=== PATIENT | male | born 1995 | race African-American/Black ===

== ENCOUNTER 2022-01-14 07:03 | Observation (INO) | payer BC, SELFPAY ==
[2022-01-14] VITALS (40 sets, daily range): BP systolic 132–185; BP diastolic 70–111; PULSE 89–127; RESP 16–34; TEMP 35.9–36.7; O2SAT 80–100; BMI 49.2
--- NOTE | ~2022-01-14 | CT_ITS ---
EXAMINATION: CTA chest PE protocol DATE: 01/14/2022 09:37 INDICATION: Shortness of breath, cough. History of asthma. Hypoxia. TECHNIQUE: Computed tomography angiography (CTA) of the chest was performed with 100 mL Omnipaque-350 intravenous contrast timed to evaluate the pulmonary arteries. Coronal maximum intensity projection 3D-reconstructions were created by the technologist. Automated exposure control and iterative reconst ruction technique were employed. Exam dose: 2057.10 mGy-cm total exam DLP. COMPARISON: 01/10/2022 portable upright AP chest FINDINGS: Examination is suboptimal for evaluation for pulmonary emboli due to suboptimal contrast op acification of the pulmonary arteries even after a second injection, in addition to difficulty evalua ting the peripheral pulmonary vessels due to respiratory motion. No central pulmonary embolus is evident. Normal heart size. No thoracic aortic aneurysm or dissection is detected. Minimal prominence mediastinal lymph nodes, likely reactive, secondary to pulmonary infiltrates. Infiltrates involve particularly superior segment of the right lower lobe, perihilar middle lobe and perihilar right lower lobe, and especially right lower lobe medial basilar segment. Minimal focal infiltrate or atelectasis in the dependent posterior segment of the left upper lobe. No pulmonary vascular congestion or pleural effusion or pneumothorax IMPRESSION: Bilateral pulmonary infiltrates, primarily on the right No central pulmonary embolism is identified Reviewed, dictated and finalized at [facility]. Reviewed, dictated and finalized at [facility]. EPERSON
--- NOTE | ~2022-01-14 | XR_ITS ---
XR chest 1V portable DATE: 01/14/2022 07:29 INDICATION: Cough, shortness of breath. History of asthma. TECHNIQUE: Portable upright AP chest on 01/10/2022 at 0726 hours COMPARISON: None FINDINGS: There is bilateral peribronchial soft tissue thickening. There are patchy bilateral pulmona ry infiltrates, relatively diffuse in the right lung and in the mid and lower lung. No pleural effusion or pulmonary vascular congestion or pneumothorax. Normal heart size. IMPRESSION: Peribronchial soft tissue thickening Bilateral pulmonary infiltrates, right greater than left Reviewed, dictated and finalized at [facility]. SURVEYOR
--- NOTE | 2022-01-14 07:17 | ECG_ITS ---
Measurements Intervals [place] Rate: 120 P: 74 DE: 166 QRS: 42 QRSD: 87 T: 44 QT: 280 QTc: 397 Interpretive Statements SINUS TACHYCARDIA BASELINE ARTIFACT- II, III, AVF, V1, V4-V6 ABNORMAL ECG NO PREVIOUS ECG AVAILABLE FOR COMPARISON Electronically Signed On 01-14-2022 14:29:36 [employer] by Jeronimo Marino D.O.
[2022-01-14] MEDS: IPRATROPIUM BR 0.02% INH SOLN 0.5 MG/2.5 ML VIAL INHALATION ×2 (07:31→20:29)
[2022-01-14] MEDS: ALBUTEROL SULFATE NEB 2.5 MG/3 ML INH 5 MG INHALATION ×2 (07:31→09:41)
--- NOTE | 2022-01-14 07:37 | ED.SOB ---
HPI - SOB/Dyspnea General Chief Complaint: Shortness of Breath/Dyspnea Stated Complaint: sob,athma & weakness Time Seen by Provider: 01/14/22 07:16 History of Present Illness HPI Narrative: This is a 26-year-old male with past medical history of hypertension and asthma, presents to the emergency department complaining of 2 days worth of shortness of breath. He states he feels this is similar to an asthma attack but much worse. He used his albuterol inhaler multiple times last use approximately 3 hours prior to arriving. He denies fevers, chills, chest pain, loss of consciousness, weakness or numbness. He also notes increased thirst and urination. A home test for COVID was negative Related Data Home Medications Medication Instructions Recorded Confirmed albuterol 90 mcg/actuation aerosol See Rx Instructions .Route 01/14/22 01/14/22 inhaler .COMPLEX PRN Wheezing ergocalciferol (vitamin D2) 1,250 1,250 mcg PO WEEKLY 01/14/22 01/14/22 mcg (50,000 unit) capsule lisinopril 5 mg tablet 5 mg PO DAILY 01/14/22 01/14/22 mometasone 220 mcg/actuation(120 1 inh inhalation BID 01/14/22 01/14/22 doses)breath activated powder inhaler (Asmanex Twisthaler) montelukast 10 mg tablet 10 mg PO DAILY 01/14/22 01/14/22 (Singulair) Allergies Allergy/AdvReac Type Severity Reaction Status Date / Time No Known Allergies Allergy Verified 01/14/22 07:15 Review of Systems Review of Systems: CONSTITUTIONAL: Denies fever, chills, or sweats. EYES: Denies visual changes, redness, or discharge. ENT: Denies rhinorrhea, congestion, sore throat, or otalgia. CARDIOVASCULAR: Palpitations denies chest pain, or edema. RESPIRATORY: cough and dyspnea. GASTROINTESTINAL: Denies abdominal pain, nausea, vomiting, or diarrhea. GENITOURINARY: Denies dysuria or hematuria. SKIN: Denies rash or itching. MUSCULOSKELETAL: Denies back pain, joint pain, or myalgia. NEUROLOGIC: Denies headache, numbness, dizziness, or weakness. PSYCHIATRIC: Denies anxiety or depression. [facility] Past Medical History Medical History (Updated 01/14/22 @ 13:01 by Michel Downs MD) Asthma Hypertension Social History Social History Smoking status: Never smoker Alcohol intake: never Substance use: never Substance use type: does not use Lack of Transportation: No Lack of Food: Never True Current Housing: I Have Housing Concerned About Future Housing: No Difficulty Paying Gas/Electric Bills: No Difficulty Paying for Meds: No Currently Unemployed: No Education: High School Diploma/GED Difficulty w/ Childcare or Family Care: No Spiritual care concerns: No Exam Narrative: GENERAL: Well-developed, well-nourished, in acute distress due to dyspnea HEAD: Normocephalic, atraumatic. EYES: PERRLA and EOMI. ENT: Nares clear, no rhinorrhea or epistaxis. Mucous membranes moist. Oropharynx without tonsillar hypertrophy exudate or other lesions. Bilateral TMs pearly ziegler nonbulging NECK: Supple. No adenopathy or masses. No carotid bruits or JVD CHEST: Moderate respiratory distress, poor aeration with full cycle wheeze, no noted rhonchi or rales HEART: Regular rate and rhythm. No murmur heard. Normal peripheral pulses. ABDOMEN: Soft, nontender, nondistended, normal active bowel sounds. EXTREMITIES: Normal range of motion. No edema. SKIN: Warm, dry, no rash. NEURO: No focal deficits. Alert and oriented x3. PSYCH: Normal mood and affect. Course Course Emergency Course: 07:45 - Patient has significant work of breathing and hypoxia. Will give duonebs, place on BiPAP and rule out PE. 09:26 - On reevaluation, the patient's work of breathing is significantly improved. Will trial off BiPAP and give an additional albuterol neb. 10:40 - CT PE negative, though demonstrates bilateral pulmonary infiltrates concerning for pneumonia. White blood cell count 12.9. ABG shows mild CO2 retention with a normal pH
[2022-01-14 07:40] LABS: Basophils Absolute Auto 0.1 K/mm3 (0.0-0.1); Basophils Percent Auto 0.5 % (0.2-1.2); Eosinophils Absolute Auto 0.6 K/mm3 (0-0.3); Eosinophils Percent Auto 4.7 % (0-4.4); Hematocrit 44.1 % (42.0-52.0); Hemoglobin 13.9 g/dL (14.0-18.0); Immature Granulocyte Absolute 0.04 K/mm3 (0.00-0.031); Immature Granulocyte Percent A 0.3 % (0-0.5); Lymphocytes Absolute Auto 1.56 K/mm3 (0.9-3.2); Lymphocytes Percent Auto 12.1 % (18.3-44.2); Mean Corpuscular HGB Conc 31.5 g/dl (32-36); Mean Corpuscular Hemoglobin 26.7 pg (26-34); Mean Corpuscular Volume 84.8 fl (80-100); Mean Platelet Volume 10.1 fl (7.4-10.4); Monocytes Absolute Auto 1.1 K/mm3 (0.1-0.6); Monocytes Percent Auto 8.5 % (2.6-8.5); Neutrophils Absolute Auto 9.5 K/mm3 (1.3-6.7); Neutrophils Percent Auto 73.9 % (45.5-73.1); Platelet Count Result 340 k/mm3 (150-375); Red Cell Distribution Width 13.2 % (11.5-14.5); White Blood Count 12.9 K/mm3 (4.5-10.0)
[2022-01-14] MEDS: MAGNESIUM SULF 2 GM/WATER 50ML 2 GM/50 ML BAG 50 GM (07:40)
[2022-01-14 07:55] LABS: Alanine Aminotransferase 75 U/L (6-50); Albumin Level 4.8 g/dL (3.5-5.1); Alkaline Phosphatase 82 U/L (38-126); Anion Gap 11 mmol/L (8-16); Aspartate Amino Transferase 31 U/L (17-59); Bilirubin,Total 0.4 mg/dL (0.2-1.3); Blood Urea Nitrogen 9 mg/dL (9-20); Calcium 8.7 mg/dL (8.4-10.2); Carbon Dioxide 28 mmol/L (22-30); Chloride 103 mmol/L (98-107); Estimated Glomerular Filt Rate > 60; Glucose 103 mg/dL (65-110); Potassium 3.7 mmol/L (3.4-5.0); Sodium 142 mmol/L (137-145)
[2022-01-14] MEDS: ALBUTEROL SULFATE NEB 2.5 MG/3 ML INH 20 MG INHALATION (08:02)
[2022-01-14 08:09] LABS: NT Pro B Type Natriuretic Pept 102 pg/mL (5-100); Troponin I < 0.012 ng/mL (0.000-0.034)
[2022-01-14 08:14] LABS: Influenza A QL RT-PCR Negative (Negative); Influenza B QL RT-PCR Negative (Negative); SARS-CoV-2 RNA PCR Negative
[2022-01-14 08:28] LABS: Alveolar/Arterial O2 Gradient 372.5 mmHg; Base Excess ABG -0.9 mEq/l (+/-2.0); Fractional Inspired Oxygen 82 %; HCO3 ABG 24.9 mEq/l (22.0-26.0); Oxygen Content ABG 20.6 %vol (16.0-22.0); Oxyhemoglobin 97.7 % THb (90.0-100.0); PCO2 ABG 45.2 mmHg (35.0-45.0); PO2 ABG 164.9 mmHg (80.0-100.0); PO2 FiO2 Ratio Arterial Blood 2.01 %; Total Hemoglobin 14.8 g/dL (12.0-18.0); pH ABG 7.359 (7.350-7.450)
[2022-01-14 08:29] LABS: Modified Allen's Test Pass; Site Drawn LEFT RADIAL
[2022-01-14 08:33] LABS: Device BIPAP
[2022-01-14 08:34] LABS: Expiratory Pressure 6 cmH2O; Inspiratory Pressure 12 cmH2O
--- NOTE | 2022-01-14 10:00 | PC.NURSE ---
Pt off of bipap and on 02 at 4l nc. Resting comfortably without c/o. Resp unlabored.
--- NOTE | 2022-01-14 12:41 | ADMGEN ---
This patient, Wilber Garrett, was admitted to IMU Room 232-01 on 01/14/22 at 1132. Patient/family oriented to hospital policies and general routines including ID bracelet, bed and alarms, visiting hours, pain management, procedures, bathroom and other care routines, personal items, smoking policy, room service/diet, and visiting hours. Information on how to activate the Rapid Response Team has been discussed. Patient/Family are encouraged to report perceived risks to care and to ask questions if they do not understand what they are told or what they should do.
--- NOTE | 2022-01-14 14:00 | PM.IMHP ---
H&P: HPI History of Present Illness Date/Time: 01/14/22 14:00 Chief Complaint: Shortness of breath. Narrative: This is a very pleasant 26-year-old male with asthma and hypertension who presented to the emergency department from home for evaluation of shortness of breath for the last 2 days. His asthma is typically well controlled however it is not unusual for it to act up with drastic change in weather. The last several days he has not felt well with shortness of breath, wheezing, cough productive of beige colored sputum, fatigue, weakness, and sweats. He has been using his rescue inhaler however it has essentially provided him with no relief over the past day or so. He has also been taking DayQuil, NyQuil, and ibuprofen without a whole lot of benefit. The muscles around his ribs and upper abdomen have been sore due to coughing so much. His appetite has been okay and he denies nausea, vomiting, and diarrhea. He denies exertional chest pain and pleuritic pain. He has no known sick contacts. He has not had a documented fever. SpO2 was 80% on arrival to the emergency department and he was immediately given a continuous nebulizer, Decadron, magnesium, and placed on BiPAP for work of breathing. CTA of the chest showed no central pulmonary embolism though exam was limited in the periphery due to respiratory motion. Bilateral pulmonary infiltrates were noted, right greater than left, and he has since been started on antibiotics for pneumonia. He tested negative for influenza and COVID. At the time my evaluation he is feeling better and is getting ready to eat some dinner. Review of Systems Review of Systems: Twelve systems were reviewed. No headache. He has had some sinus congestion since being placed on nasal cannula. No significant sore throat. He does snore loudly and occasionally takes naps during the day but he denies overt daytime hypersomnolence. No paroxysmal nocturnal dyspnea. He has not noticed any lower extremity edema. No history of venous thromboembolism. Except as documented, all other systems were reviewed and are negative. [facility] Past Medical History Medical History (Updated 01/14/22 @ 21:36 by Amber Herzog PA-C) Asthma Eczema Hypertension Surgical History Surgical History (Updated 01/14/22 @ 21:33 by Amber Herzog PA-C) No history of previous surgery Family History Family History (Updated 01/14/22 @ 21:34 by Amber Herzog PA-C) Other Family history non-contributory Social History Social History Social History: Surrogate medical decision maker: Lui Garrett, father. Code status: Full code. Smoking status: Never smoker Alcohol intake: never Substance use: never Substance use type: does not use Lack of Transportation: No Lack of Food: Never True Current Housing: I Have Housing Concerned About Future Housing: No Difficulty Paying Gas/Electric Bills: No Difficulty Paying for Meds: No Currently Unemployed: No Education: High School Diploma/GED Difficulty w/ Childcare or Family Care: No Spiritual care concerns: No Meds Home Medications and Allergies Home Medications Medication Instructions Recorded Confirmed Type albuterol 90 mcg/actuation aerosol See Rx Instructions .Route 01/14/22 01/14/22 History inhaler .COMPLEX PRN Wheezing ergocalciferol (vitamin D2) 1,250 1,250 mcg PO WEEKLY 01/14/22 01/14/22 History mcg (50,000 unit) capsule lisinopril 5 mg tablet 5 mg PO DAILY 01/14/22 01/14/22 History mometasone 220 mcg/actuation(120 1 inh inhalation BID 01/14/22 01/14/22 History doses)breath activated powder inhaler (Asmanex Twisthaler) montelukast 10 mg tablet 10 mg PO DAILY 01/14/22 01/14/22 History (Singulair) Allergies Allergy/AdvReac Type Severity Reaction Status Date / Time No Known Allergies Allergy Verified 01/14/22 07:15 Vital Signs Vital Signs - 24 hr 01/14/22
[2022-01-14] MEDS: guaiFENesin 12 HR 600 MG TABCR 1200 MG PO ×2 (15:06→21:27)
[2022-01-14] MEDS: ALBUTEROL SULFATE NEB 2.5 MG/3 ML INH INHALATION (20:29)
[2022-01-15] VITALS (13 sets, daily range): BP systolic 136; BP diastolic 87; PULSE 82–114; RESP 16–24; TEMP 36.7; O2SAT 87–97
[2022-01-15] MEDS: IPRATROPIUM BR 0.02% INH SOLN 0.5 MG/2.5 ML VIAL INHALATION ×2 (00:30→09:55)
[2022-01-15] MEDS: ALBUTEROL SULFATE NEB 2.5 MG/3 ML INH INHALATION ×2 (00:30→09:55)
--- NOTE | 2022-01-15 01:19 | PCRCNOTE ---
Pt placed on apnea link at 0030, will attempt to obtain sufficient data however pt is being transferred off of IMU.
[2022-01-15 04:37] LABS: Basophils Percent Auto 0.1 % (0.2-1.2); Eosinophils Percent Auto 0.1 % (0-4.4); Hematocrit 41.9 % (42.0-52.0); Hemoglobin 13.4 g/dL (14.0-18.0); Immature Granulocyte Absolute 0.08 K/mm3 (0.00-0.031); Immature Granulocyte Percent A 0.6 % (0-0.5); Lymphocytes Absolute Auto 1.05 K/mm3 (0.9-3.2); Lymphocytes Percent Auto 7.8 % (18.3-44.2); Mean Corpuscular Hemoglobin 27.3 pg (26-34); Mean Corpuscular Volume 85.3 fl (80-100); Mean Platelet Volume 9.7 fl (7.4-10.4); Monocytes Percent Auto 7.5 % (2.6-8.5); Neutrophils Absolute Auto 11.2 K/mm3 (1.3-6.7); Neutrophils Percent Auto 83.9 % (45.5-73.1); Platelet Count Result 328 k/mm3 (150-375); Red Blood Count 4.91 M/mm3 (4.6-6.20); Red Cell Distribution Width 13.4 % (11.5-14.5); White Blood Count 13.4 K/mm3 (4.5-10.0)
[2022-01-15 04:48] LABS: Alanine Aminotransferase 68 U/L (6-50); Albumin Level 4.4 g/dL (3.5-5.1); Alkaline Phosphatase 73 U/L (38-126); Anion Gap 11 mmol/L (8-16); Aspartate Amino Transferase 34 U/L (17-59); Bilirubin,Total 0.4 mg/dL (0.2-1.3); Blood Urea Nitrogen 8 mg/dL (9-20); CRP 6.8 mg/dL (<1.0); Calcium 8.9 mg/dL (8.4-10.2); Carbon Dioxide 25 mmol/L (22-30); Chloride 104 mmol/L (98-107); Estimated CRCL calculation 223 ml/min; Estimated Glomerular Filt Rate > 60; Glucose 119 mg/dL (65-110); Magnesium 2.3 mg/dL (1.6-2.3); Potassium 4.3 mmol/L (3.4-5.0); Sodium 140 mmol/L (137-145)
--- NOTE | 2022-01-15 07:02 | PCRCNOTE ---
Pt. completed apnea link: Pt. required 3l/m to keep spo2 above 87%
[2022-01-15 07:50] LABS: Procalcitonin 0.1 ng/mL
--- NOTE | 2022-01-15 08:02 | PC.NURSE ---
Patient transferred from 232 to room 247. Patient oriented to the room.
[2022-01-15] MEDS: predniSONE 20 MG TABLET 40 MG PO (08:28)
[2022-01-15] MEDS: guaiFENesin 12 HR 600 MG TABCR 1200 MG PO (08:28)
[2022-01-15] MEDS: ENOXAPARIN 40 MG/0.4 ML SYRINGE SUB-Q (08:28)
[2022-01-15] MEDS: MONTELUKAST SODIUM 10 MG TABLET PO (08:28)
[2022-01-15] MEDS: lisinopriL 5 MG TABLET PO (08:28)
--- NOTE | 2022-01-15 10:30 | PM.DS ---
DS: Admitting Diagnosis Discharge Date 01/15/2022 Admitting Diagnosis shortness of breath DS: Summary Hospital Course Hospital Course: This is a very pleasant 26-year-old male with asthma and hypertension who presented to the emergency department from home for evaluation of shortness of breath for the last 2 days. SpO2 was 80% on arrival to the emergency department and he was immediately given a continuous nebulizer, Decadron, magnesium, and placed on BiPAP for work of breathing. CTA of the chest showed no central pulmonary embolism though exam was limited in the periphery due to respiratory motion. Bilateral pulmonary infiltrates were noted, right greater than left, and he has since been started on antibiotics for pneumonia. He tested negative for influenza and COVID. At the time my evaluation he is feeling better and is on room air. His saturations are above 90% on room air. He has some wheezing but otherwise he is stable. We will discharge him home with oral prednisone and oral Augmentin. Time Spent with Patient Time attestation: Total time spent providing and/or coordinating discharge services: Exam Narrative: General: nontoxic-appearing male sitting up in bed. Weight: 164.7 kilograms. BMI: 49.2. HEENT: PERRL, EOMI. Sclera anicteric. Oral mucosa moist. Oropharynx is quite crowded and not visualized. Neck: Supple. Exam limited due to neck circumference but no obvious lymphadenopathy. Respiratory: Respirations are nonlabored and he is able to speak in full sentences. Bibasilar rales and crackles with faint high-pitched and expiratory wheezing. Cardiovascular: Regular rate and rhythm with S1-S2. Gastrointestinal: Abdomen is soft, morbidly obese, and nontender with positive bowel sounds. Skin: Warm and dry. No rash or lesions on limited exam. Extremities: No cyanosis, clubbing, or pitting edema. Radial and pedal pulses intact. Negative Dahlia sign bilaterally. Neurological: Alert and oriented. Cranial nerves 2-12 are grossly intact. No gross focal deficits to casual conversation. Psychiatric: Pleasant and cooperative with normal mood and affect. Judgment and insight intact. DS: Data Data Completed and Pending Labs on day of discharge: Labs from last 24 hours 01/15/22 01/15/22 01/15/22 04:31 04:31 04:31 WBC 13.4 H RBC 4.91 Hgb 13.4 L Hct 41.9 L MCV 85.3 MCH 27.3 MCHC 32.0 RDW 13.4 Plt Count 328 MPV 9.7 Immature Gran % (Auto) 0.6 H Neut % (Auto) 83.9 H Lymph % (Auto) 7.8 L [place] % (Auto) 7.5 Eos % (Auto) 0.1 Baso % (Auto) 0.1 L Lymph # (Auto) 1.05 [place] # (Auto) 1.0 H Eos # (Auto) 0.0 Baso # (Auto) 0.0 Abs Immat Gran (auto) 0.08 H Absolute Neuts (auto) 11.2 H Absolute Nucleated RBC 0.0 Nucleated RBC % 0.0 Sodium 140 Potassium 4.3 Chloride 104 Carbon Dioxide 25 Anion Gap 11 BUN 8 L Creatinine 0.70 Estim Creat Clear Calc 223 Estimated GFR > 60 Glucose 119 H Calcium 8.9 Magnesium 2.3 Total Bilirubin 0.4 Direct Bilirubin 0.0 AST 34 ALT 68 H Alkaline Phosphatase 73 C-Reactive Protein 6.8 H Total Protein 7.0 Albumin 4.4 Procalcitonin 0.1 Ur L.pneumophila Ag Mycoplasma pneumon IgM Urine Pneumococcal Ag 01/14/22 01/14/22 20:09 10:40 WBC RBC Hgb Hct MCV MCH MCHC RDW Plt Count MPV Immature Gran % (Auto) Neut % (Auto) Lymph % (Auto) [place] % (Auto) Eos % (Auto) Baso % (Auto) Lymph # (Auto) [place] # (Auto) Eos # (Auto) Baso # (Auto) Abs Immat Gran (auto) Absolute Neuts (auto) Absolute Nucleated RBC Nucleated RBC % Sodium Potassium Chloride Carbon Dioxide Anion Gap BUN Creatinine Estim Creat Clear Calc Estimated GFR Glucose Calcium Magnesium Total Bilirubin Direct Bilirubin AST ALT Alkaline Phosphatase C-Reactive Protein Total Protein Albumin
[2022-01-18 14:29] LABS: Mycoplasma IgM Antibody Titer 211 U/mL (<770)
[2022-01-18 16:33] LABS: Legionella pneumophila Ag Ur Not Detected (Not Detected)
[2022-01-18 18:08] LABS: Pneumococcal Antigen Urine Not Detected (Not Detected)
== END 2022-01-15 11:42 | disposition home or self-care (01) ==
LOC: ANHED 08:03 → ANHIMU 13:01 → ANH2MED 01-15 10:29 → ANHIMU 01-18 10:56
PROVIDERS: Physician Assistant; Admitting Provider Family Medicine; Emergency Provider Preventive Medicine Aerospace Medicine; PCP Family Medicine; Visit Provider Hospitalist
DX: J96.01 Acute respiratory failure with hypoxia (principal); J18.9 Pneumonia, unspecified organism; J45.901 Unspecified asthma with (acute) exacerbation; R29.818 Other symptoms and signs involving the nervous system; I10 Essential (primary) hypertension; R00.2 Palpitations; R94.31 Abnormal electrocardiogram [ECG] [EKG]; Z20.822 Contact with and (suspected) exposure to COVID-19; Z79.51 Long term (current) use of inhaled steroids; Z79.899 Other long term (current) drug therapy
CPT/HCPCS: 36415; 36600; 71045; 71275; 80048; 80053; 80076; 82805; 83735; 83880; 84145; 84484; 85025; 86140; 86738; 87040; 87070; 87205; 87449; 87502; 87899; 93005; 94002; 94640; 94667; 96365; 96366; 96372; 96375; 99285; A9270; G0378; J0456; J0696; J1100; J1650; J3475; J7512; Q9967; U0003; U0005